=== PATIENT | male | born 1950 | race Caucasian/White ===

== ENCOUNTER 2016-08-09 17:52 | Emergency (ER) | payer BC ==
[~2016-08-09] VITALS: Ht 180.3 cm; Wt 75.3 kg
[~2016-08-09 17:52] MED LIST: ATORVASTATIN CA10 MG PO; CEPHALEXIN500 MG PO; DALMANE15 MG ORAL; MIRTAZAPINE15 M3 ORAL; ROZEREM8 MG PO; SYNTHROID25 MCG PO
[2016-08-09 18:20] VITALS: BP 151/93
--- NOTE | 2016-08-09 19:25 | Emergency Room Report ---
History of Present Illness General Chief Complaint: Puncture Wound Source: Patient, Medical Record (Valentina Ortega) Present Illness HPI 65-year-old male presents emergency department complaining of retained splinter in the left middle finger times one week. Patient states that he attempted to remove the splinter a week ago however he believes that a portion may have been retained as he now has a moderate area of callous to the pad of his finger that has not been getting better. Denies erythema and denies fevers or chills denies bleeding. Patient states that he is up-to-date with vaccinations. Denies numbness tingling or loss of sensation or gross motor movements of the extremities, incontinence of bowel or bladder. Denies CP, Palpitations, LOC, AMS , dizziness, Changes in Vision, Sensation, paresthesias, or a sudden severe headache. (Valentina Ortega) Allergies: Coded Allergies: No Known Allergies (Unverified , 07/20/12) Patient History Past Medical History: see triage record Past Surgical History: none Pertinent Family History: none Immunizations: UTD Reviewed Nursing Documentation: PMH: Agreed, PSxH: Agreed (Valentina Ortega) Nursing Documentation-PMH Hx Cardiac Problems: No Hx Cancer: No Hx Gastrointestinal Problems: No (Valentina Ortega) Review of Systems All Other Systems: negative except mentioned in HPI (Valentina Ortega) Physical Exam Vital Signs Date Time Temp Pulse Resp B/P Pulse Ox O2 Delivery O2 Flow Rate FiO2 08/09/16 18:08 97.9 63 14 151/93 98 Room Air Sp02 EP Interpretation: reviewed, normal General Appearance: no apparent distress, alert, GCS 15, non-toxic Head: normocephalic, atraumatic ENT: hearing grossly normal, normal pharynx, no angioedema, normal voice Neck: full range of motion, supple/symm/no masses Respiratory: lungs clear, normal breath sounds, speaking full sentences Cardiovascular #1: regular rate, rhythm, no edema Musculoskeletal: back normal, gait/station normal, normal range of motion, non- tender, no calf tenderness Neurologic: alert, oriented x3, responsive, motor strength/tone normal, sensory intact, speech normal Psychiatric: judgement/insight normal, memory normal, mood/affect normal, no suicidal/homicidal ideation Skin: normal color, no rash, warm/dry, well hydrated, other - Sliver and skin callous removed from the distal finger pad of the left middle finger, lesion is less than 0.3cm in diameter. no erythema, no increased temperature to palpation , no evidence of secondary infection at this time. Lymphatic: no adenopathy (Valentina Ortega.AMorgan) Procedures Additional Procedure Procedure Narrative Procedure: Sliver and skin callous removed from the distal finger pad of the left middle finger, using gentle scraping technique using a 20g Needle. Pt. tolerated well there were no complications. pt. did not require use of local anesthesia, sliver and callous did not extend past the dermis. (Valentina Ortega.A.) Medical Decision Making PA Attestation Dr. Monroe is my supervising Physician whom patient management has been discussed with. (Valentina Ortega.Mason.) Diagnostic Impression: Primary Impression: Residual foreign body in soft tissue ER Course 65-year-old male presents emergency department complaining of retained splinter in the left middle finger times one week. Patient states that he attempted to remove the splinter a week ago however he believes that a portion may have been retained as he now has a moderate area of callous to the pad of his finger that has not been getting better. Denies erythema and denies fevers or chills denies bleeding. Patient states that he is up-to-date with vaccinations. Denies numbness tingling or loss of sensation or gross motor movements of the extremities, incontinence of bowel or bladder. Denies CP, Palpitations, LOC, AMS, dizziness, Changes in Vision, Sensation, paresthesias, or a sudden severe headache. Ddx considered but are not limited to scar tissue, retained soft tissue fb, splinter, paresthesia, abscess/cellulitis Vital signs: are WNL, pt. is afebrile H&PE are most consistent with retained splinter and scar tissue formation of the left middle finger pad. ORDERS: -Bacitracin ED INTERVENTIONS: * Procedure: Sliver and skin callous removed from the distal finger pad of the left middle finger, using gentle scraping technique using a 20g Needle. Pt. tolerated well there were no complications. pt. did not require use of local anesthesia, sliver and callous did not extend past the dermis. DISCHARGE: At this time pt. is stable for d/c to home. Will provide printed patient care instructions, and any necessary prescriptions. Care plan and follow up instructions have been discussed with the patient prior to discharge. (Valentina Ortega) Last Vital Signs Date Time Temp Pulse Resp B/P Pulse Ox O2 Delivery O2 Flow Rate FiO2 08/09/16 18:20 97.9 65 14 151/93 98 Room Air (Valentina Ortega) Disposition: HOME, SELF-CARE Condition: Stable Scripts Bacitracin Zinc/Polymyx B Sulf (HM DOUBLE ANTIBIOTIC OINTMENT) 28.4 Gm Oint...g. 1 APPLIC TP BID, #28.4 GM Prov: Valentina Ortega 08/09/16 Referrals: NON PHYSICIAN (PCP) Patient Instructions: Sliver Removal, Care After Additional Instructions: Take medications as directed. Follow up with PCP in 3-5 days Return sooner to ED if new symptoms occur, or current symptoms become worse. - Please note that this Emergency Department Report was dictated using [employer] package handler technology software, occasionally this can lead to erroneous entry secondary to interpretation by the dictation equipment. Valentina Ortega Aug 09, 2016 19:25 Kaleb Monroe M.D. Aug 22, 2016 01:48
[2016-08-09] MEDS ORDERED: HM DOUBLE ANT28.4 G1 TP (19:27)
[2016-08-09] MEDS ORDERED: Bacitracin Oint UD TOPIC ONE (19:30)
[2016-08-09 19:59] VITALS: BP 151/93
== END 2016-08-09 20:00 | disposition home or self-care (01) ==
LOC: EMR 18:30
DX: M79.5 Residual foreign body in soft tissue (principal)
CPT/HCPCS: 99283